=== PATIENT | female | born 1945 | race Caucasian/White ===

== ENCOUNTER 2021-11-24 08:01 | Day surgery (SDC) | payer MEDICARE, OTHER ==
[~2021-11-24 08:01] MED LIST: Lactated Ringers 1,000 ML IV SCH; Sodium Chloride 0.9% 10 ML Syringe FLUSH PRN
[2021-11-24] MEDS ORDERED: Propofol 200 MG/20 ML SDV ONE (09:03)
== END 2021-11-24 11:45 | disposition home or self-care (01) ==
LOC: VM.SDS 08:01
PROVIDERS: ATTEND Family Medicine
DX: Z12.11 Encounter for screening for malignant neoplasm of colon (principal); D12.3 Benign neoplasm of transverse colon; K57.30 Diverticulosis of large intestine without perforation or abscess without bleeding; J44.9 Chronic obstructive pulmonary disease, unspecified; F41.9 Anxiety disorder, unspecified; F32.A Depression, unspecified; G47.00 Insomnia, unspecified; M81.0 Age-related osteoporosis without current pathological fracture; E78.00 Pure hypercholesterolemia, unspecified; F17.210 Nicotine dependence, cigarettes, uncomplicated; Z86.010 Personal history of colon polyps; Z98.890 Other specified postprocedural states; Z79.899 Other long term (current) drug therapy; Z88.0 Allergy status to penicillin
CPT/HCPCS: 00811; 45385; J2704; J7120

== ENCOUNTER 2022-05-31 11:04 | Emergency (ER) | payer MEDICARE, OTHER ==
[2022-05-31 12:41] LABS: ANION GAP 10.9 mmol/L (5-15); CHLORIDE,CL 95 mmol/L (98-107); ESTIMATED GFR 65 mL/min (>=60); SODIUM,NA 133 mmol/L (136-145)
[2022-05-31 12:50] LABS: CORONAVIRUS COVID-19 NAA NEGATIVE (NEGATIVE); RESPIRATORY SYNCYTIAL VIR NAA NEGATIVE (NEGATIVE)
== END 2022-05-31 14:05 | disposition home or self-care (01) ==
LOC: VM.ED 11:04
DX: N30.00 Acute cystitis without hematuria (principal); E78.00 Pure hypercholesterolemia, unspecified; J44.9 Chronic obstructive pulmonary disease, unspecified; Z88.0 Allergy status to penicillin; Z72.0 Tobacco use; Z79.82 Long term (current) use of aspirin; Z79.899 Other long term (current) drug therapy; Z20.822 Contact with and (suspected) exposure to COVID-19
CPT/HCPCS: 0241U; 36415; 80053; 81001; 83605; 85025; 85610; 87040; 87086; 87088; 87186; 99284

== ENCOUNTER 2022-06-01 14:06 | Inpatient (IN) | payer MEDICARE, OTHER ==
[2022-06-01] MEDS ORDERED: Ondansetron 4 MG Tab.DIS PO PRN (14:23)
[2022-06-01] MEDS ORDERED: Ondansetron 4 MG/2 ML SDV IV PRN (14:23)
[2022-06-01] MEDS ORDERED: Morphine 2 MG/ML SYRINGE IVPUSH PRN (14:23)
[2022-06-01 15:20] LABS: CHLORIDE,CL 93 mmol/L (98-107); SODIUM,NA 131 mmol/L (136-145)
[2022-06-01 15:21] LABS: ANION GAP 12.7 mmol/L (5-15); ESTIMATED GFR 57 mL/min (>=60)
[2022-06-01] MEDS: Sodium Chloride 0.9% 1,000 ML IV SCH (15:32)
[2022-06-01] MEDS ORDERED: Iopamidol 612 MG/ML 100 ML Bottle IVPUSH ONE (17:41)
[2022-06-01] MEDS ORDERED: Iopamidol 612 MG/ML 50 ML SDV IVPUSH ONE (17:41)
[2022-06-01] MEDS: Potassium Bicarbonate/Cit Ac 10 MEQ Effervescent Tab PO SCH (18:28)
[2022-06-01] MEDS: Morphine 2 MG/ML SYRINGE IVPUSH PRN (19:19)
[2022-06-01] MEDS: traZODone 50 MG Tab PO SCH (20:17)
[2022-06-01] MEDS: Nitrofurantoin Monohydrate/Macrocrystalline 100 MG Cap PO SCH (20:17)
[2022-06-02] MEDS: Sodium Chloride 0.9% 1,000 ML IV SCH (01:34)
[2022-06-02 07:26] LABS: ANION GAP 10.4 mmol/L (5-15)
[2022-06-02] MEDS: Potassium Bicarbonate/Cit Ac 10 MEQ Effervescent Tab PO SCH (08:03)
[2022-06-02] MEDS: Nitrofurantoin Monohydrate/Macrocrystalline 100 MG Cap PO SCH (08:03)
[2022-06-02] MEDS: Enoxaparin 30 MG/0.3 ML Syringe SUBCUT SCH (08:04)
[2022-06-02] MEDS ORDERED: Albuterol/Ipratropium 3.0-0.5 MG/3 ML Neb Soln NEB PRN (08:13)
[2022-06-02] MEDS: Morphine 2 MG/ML SYRINGE IVPUSH PRN (08:16)
[2022-06-02] MEDS: Sodium Chloride 0.9% 10 ML Syringe FLUSH PRN ×2 (08:22→18:54)
[2022-06-02] MEDS: Albuterol 0.083% 2.5 MG/3 ML Neb Soln NEB PRN ×2 (14:40→20:45)
[2022-06-02] MEDS: cefTRIAXone 1 GM Vial IVPUSH SCH (18:56)
[2022-06-02] MEDS: Doxycycline Monohydrate 100 MG Cap PO SCH (20:40)
[2022-06-02] MEDS: Simvastatin 40 MG Tab PO SCH (20:41)
[2022-06-02] MEDS: traZODone 50 MG Tab PO SCH ×2 (20:41→20:47)
[2022-06-03] MEDS ORDERED: Magnesium Sulfate/Water 2 GM in Premix Bag 1 BAG IV ONE (08:12)
[2022-06-03 08:24] LABS: ANION GAP 8.9 mmol/L (5-15)
[2022-06-03] MEDS: Aspirin 81 MG Tab.Chew PO SCH (08:36)
[2022-06-03] MEDS: Sertraline 100 MG Tab PO SCH (08:36)
[2022-06-03] MEDS: Doxycycline Monohydrate 100 MG Cap PO SCH ×2 (08:37→20:24)
[2022-06-03] MEDS: Docusate Sodium 100 MG Cap PO SCH (08:37)
[2022-06-03] MEDS: Acetaminophen 325 MG Tab PO PRN ×2 (08:37→20:24)
[2022-06-03] MEDS: Enoxaparin 30 MG/0.3 ML Syringe SUBCUT SCH (08:38)
[2022-06-03] MEDS: cefTRIAXone 1 GM Vial IVPUSH SCH (08:39)
[2022-06-03] MEDS: Albuterol 0.083% 2.5 MG/3 ML Neb Soln NEB PRN (08:39)
[2022-06-03] MEDS: Sodium Chloride 0.9% 10 ML Syringe FLUSH PRN (08:44)
[2022-06-03] MEDS: Hypromellose 0.3% Ophth Soln 15 ML Bottle EYEBOTH SCH (08:51)
[2022-06-03] MEDS: Simvastatin 40 MG Tab PO SCH (20:24)
[2022-06-03] MEDS: traZODone 50 MG Tab PO SCH ×2 (20:24→20:27)
[2022-06-04] MEDS: cefTRIAXone 1 GM Vial IVPUSH SCH (08:37)
[2022-06-04] MEDS: Enoxaparin 30 MG/0.3 ML Syringe SUBCUT SCH (08:37)
[2022-06-04] MEDS: Aspirin 81 MG Tab.Chew PO SCH (08:38)
[2022-06-04] MEDS: Doxycycline Monohydrate 100 MG Cap PO SCH ×2 (08:38→20:34)
[2022-06-04] MEDS: Docusate Sodium 100 MG Cap PO SCH (08:38)
[2022-06-04] MEDS: Sertraline 100 MG Tab PO SCH (08:38)
[2022-06-04] MEDS: Hypromellose 0.3% Ophth Soln 15 ML Bottle EYEBOTH SCH (08:39)
[2022-06-04 08:41] LABS: ANION GAP 8.8 mmol/L (5-15)
[2022-06-04] MEDS: traZODone 50 MG Tab PO SCH ×2 (20:34→20:35)
[2022-06-04] MEDS: Simvastatin 40 MG Tab PO SCH (20:34)
[2022-06-05 07:35] LABS: ANION GAP 8.7 mmol/L (5-15)
[2022-06-05] MEDS ORDERED: Tiotropium Bromide 4 GM Inhalation Spray (2.5mcg/1 dose; 10 doses) INH SCH (09:00)
[2022-06-05] MEDS ORDERED: Magnesium Sulfate/Water 2 GM in Premix Bag 1 BAG IV ONE (09:00)
[2022-06-05] MEDS ORDERED: Magnesium Oxide 400 MG Tab PO SCH (09:00)
[2022-06-05] MEDS: Aspirin 81 MG Tab.Chew PO SCH (09:04)
[2022-06-05] MEDS: Docusate Sodium 100 MG Cap PO SCH (09:05)
[2022-06-05] MEDS: Doxycycline Monohydrate 100 MG Cap PO SCH (09:05)
[2022-06-05] MEDS: Sertraline 100 MG Tab PO SCH (09:06)
[2022-06-05] MEDS: Enoxaparin 30 MG/0.3 ML Syringe SUBCUT SCH (09:06)
[2022-06-05] MEDS: Hypromellose 0.3% Ophth Soln 15 ML Bottle EYEBOTH SCH (09:06)
[2022-06-05] MEDS: cefTRIAXone 1 GM Vial IVPUSH SCH (09:11)
== END 2022-06-05 13:33 | disposition home health service (06) | DRG 388 ==
LOC: VM.MS 14:15
PROVIDERS: ADMIT Internal Medicine; ATTEND Internal Medicine
DX: K56.600 Partial intestinal obstruction, unspecified as to cause (principal); J15.29 Pneumonia due to other staphylococcus; J15.4 Pneumonia due to other streptococci; J44.0 Chronic obstructive pulmonary disease with (acute) lower respiratory infection; E44.1 Mild protein-calorie malnutrition; N30.00 Acute cystitis without hematuria; Z68.1 Body mass index [BMI] 19.9 or less, adult; F17.210 Nicotine dependence, cigarettes, uncomplicated; E87.6 Hypokalemia; E83.42 Hypomagnesemia; E78.5 Hyperlipidemia, unspecified; F32.A Depression, unspecified; M81.0 Age-related osteoporosis without current pathological fracture; D64.9 Anemia, unspecified; B96.20 Unspecified Escherichia coli [E. coli] as the cause of diseases classified elsewhere; E78.00 Pure hypercholesterolemia, unspecified; J44.9 Chronic obstructive pulmonary disease, unspecified; K21.9 Gastro-esophageal reflux disease without esophagitis; R09.02 Hypoxemia; G89.29 Other chronic pain; M54.9 Dorsalgia, unspecified; F41.9 Anxiety disorder, unspecified; F10.20 Alcohol dependence, uncomplicated; G47.00 Insomnia, unspecified; Z90.710 Acquired absence of both cervix and uterus; Z98.51 Tubal ligation status; Z98.890 Other specified postprocedural states; Z79.899 Other long term (current) drug therapy; Z86.010 Personal history of colon polyps; Z79.82 Long term (current) use of aspirin
CPT/HCPCS: 36415; 71045; 71046; 74019; 74177; 80048; 80053; 82947; 83605; 83735; 84484; 85025; 87070; 87077; 87205; 94640; 94760; 97110-GP; 97161-GP; 97530-GP; A9270-GY; J0696; J1650; J2270; J2405; J3475; J3490; J7030; J7613-GY; J7620-GY; Q9967

== ENCOUNTER 2022-11-03 16:58 | Emergency (ER) | payer OTHER, MEDICARE | END 2022-11-03 19:08 | disposition home or self-care (01) | LOC: VM.ED 16:58 | DX: S43.401A Unspecified sprain of right shoulder joint, initial encounter (principal); E78.00 Pure hypercholesterolemia, unspecified; J44.9 Chronic obstructive pulmonary disease, unspecified; Z88.0 Allergy status to penicillin; Z79.899 Other long term (current) drug therapy; Z79.82 Long term (current) use of aspirin; W18.30XA Fall on same level, unspecified, initial encounter; Y92.89 Other specified places as the place of occurrence of the external cause | CPT/HCPCS: 73030-RT; 99283 ==

== ENCOUNTER 2023-10-03 13:37 | Emergency (ER) | payer MEDICARE ==
[2023-10-03 14:24] LABS: EOSINOPHILS PERCENT AUTO 0.1 % (0.0-4.0); HEMATOCRIT 41.7 % (33.0-47.0); HEMOGLOBIN 13.6 g/dL (12.0-16.0); IMMATURE GRAN ABSOLUTE AUTO 0.02 x10^3/uL (0.00-0.07); LYMPHOCYTES ABSOLUTE AUTO 0.6 x10^3/uL (1.0-4.8); LYMPHOCYTES PERCENT AUTO 4.3 % (25.0-50.0); MEAN CORPUSCULAR HEMOGLOBIN 29.8 pg (26.0-32.0); MEAN CORPUSCULAR HGB CONC 32.6 g/dL (32.0-36.0); MEAN CORPUSCULAR VOLUME 91.4 fL (78.0-93.0); MONOCYTES ABSOLUTE AUTO 1.2 x10^3/uL (0.0-0.8); MONOCYTES PERCENT AUTO 8.1 % (2.0-11.0); NEUTROPHILS ABSOLUTE AUTO 12.8 x10^3/uL (1.8-7.7); NEUTROPHILS PERCENT AUTO 87.4 % (50.0-80.0); PLATELET COUNT,PLT 273 x10^3/uL (130-400); RED BLOOD CELL COUNT 4.56 x10^6/uL (4.00-5.50); WHITE BLOOD CELL COUNT,WBC 14.6 x10^3/uL (4.0-10.0)
[2023-10-03] MEDS: HYDROmorphone 1 MG/ML Syringe IVPUSH ONE (14:40)
[2023-10-03] MEDS: Sodium Chloride 0.9% 1,000 ML IV ONE ×2 (14:40→17:25)
[2023-10-03] MEDS: Ondansetron 4 MG/2 ML SDV IVPUSH PRN (14:40)
[2023-10-03 14:52] LABS: A/G RATIO 0.82; ALBUMIN 4.1 g/dL (3.4-5.0); ANION GAP 16.2 mmol/L (5-15); BILIRUBIN TOTAL 0.5 mg/dL (0.2-1.0); CALCIUM 9.9 mg/dL (8.5-10.1); CREATININE 1.2 mg/dL (0.55-1.02); EST CRCL DRUG DOSING (CG) 24.02 mL/min; POTASSIUM,K 4.2 mmol/L (3.5-5.1); PROTEIN TOTAL,TP 9.1 g/dL (6.4-8.2)
[2023-10-03] MEDS: Iopamidol 612 MG/ML 100 ML Bottle IVPUSH ONE (15:31)
[2023-10-03] MEDS: Piperacillin/Tazobactam 4.5 GM in Sodium Chloride 0.9% 100 ML IV ONE (17:25)
== END 2023-10-03 19:59 | disposition short-term general hospital (02) ==
LOC: SUPCPDRO 13:37 → VM.ED 13:37
DX: K56.609 Unspecified intestinal obstruction, unspecified as to partial versus complete obstruction (principal); R79.89 Other specified abnormal findings of blood chemistry; E87.20 Acidosis, unspecified; E78.00 Pure hypercholesterolemia, unspecified; J44.9 Chronic obstructive pulmonary disease, unspecified; Z90.710 Acquired absence of both cervix and uterus; Z79.82 Long term (current) use of aspirin; Z79.899 Other long term (current) drug therapy; Z88.0 Allergy status to penicillin
CPT/HCPCS: 36415; 71045; 74177; 80053; 83605; 83690; 84484; 85025; 87040; 93005; 96361; 96365; 96375; 99285; J1170; J2405; J2543; J3490; J7030; Q9967

== ENCOUNTER 2023-10-15 09:28 | Inpatient (IN) | payer MEDICARE ==
[2023-10-15] MEDS ORDERED: oxyCODONE 5 MG Tab PO PRN (18:03)
[2023-10-15] MEDS ORDERED: Albuterol 0.083% 2.5 MG/3 ML Neb Soln NEB PRN (18:14)
[2023-10-15] MEDS ORDERED: Albuterol HFA 18 Gm Inhaler INH PRN (20:35)
[2023-10-15] MEDS: Simvastatin 20 MG Tab PO SCH (21:52)
[2023-10-15] MEDS: Budesonide 0.5 MG/2 ML Neb Susp NEB SCH (21:52)
[2023-10-15] MEDS: Arformoterol 15 MCG/2 ML Neb Soln NEB SCH (21:52)
[2023-10-15] MEDS: Cholecalciferol (Vitamin D3) 25 MCG Tab PO SCH (21:52)
[2023-10-15] MEDS: traZODone 50 MG Tab PO SCH (21:52)
[2023-10-16] MEDS: Sertraline 100 MG Tab PO SCH ×2 (04:42→09:35)
[2023-10-16] MEDS ORDERED: Non-Formulary Medication 1 Each (Potassium Gluconate [Potassium Gluconate] 99 MG Tablet) PO SCH (09:00)
[2023-10-16] MEDS ORDERED: LACTOSE REDUCED FOOD PO SCH ×2 (09:00)
[2023-10-16] MEDS ORDERED: Non-Formulary Medication 1 Each (Carboxymethylcellulose Sodium [Artificial Tears] 15 ML Dr EYEBOTH SCH (09:00)
[2023-10-16] MEDS: Aspirin 81 MG Tab.Chew PO SCH (09:29)
[2023-10-16] MEDS: Ascorbic Acid 500 MG Tab PO SCH (09:29)
[2023-10-16] MEDS: Tiotropium Bromide 4 GM Inhalation Spray (2.5mcg/1 dose; 10 doses) INH SCH (09:30)
[2023-10-16] MEDS: Fish Oil/Omega-3 Fatty Acids 1 Gm Cap PO SCH (09:30)
[2023-10-16] MEDS: Cyanocobalamin (Vitamin B12) 250 MCG Tab PO SCH (09:30)
[2023-10-16] MEDS: Potassium Chloride 10 MEQ Tab.ER PO SCH (09:36)
[2023-10-16] MEDS: Spironolactone 25 MG Tab PO SCH (09:36)
[2023-10-16] MEDS: Nicotine 14 MG/24 Hr Patch TRDERM SCH (09:36)
[2023-10-16] MEDS: Hypromellose 0.3% Ophth Soln 15 ML Bottle EYEBOTH SCH (09:37)
[2023-10-16] MEDS: DENOSUMAB 60 MG/ML SUBCUT SCH (09:54)
[2023-10-16] MEDS: Non-Formulary Medication 1 Each (Potassium Gluconate [Potassium Gluconate] 99 MG) PO SCH (09:55)
[2023-10-16] MEDS: Furosemide 40 MG Tab PO SCH (09:57)
[2023-10-16] MEDS: Calcium Carbonate/Vitamin D3 1250 MG-5 MCG Tab PO SCH (18:08)
[2023-10-16] MEDS: Acetaminophen 325 MG Tab PO PRN (18:12)
[2023-10-18] MEDS: traMADol 50 MG Tab PO PRN (06:46)
[2023-10-18 06:48] LABS: BASOPHILS PERCENT AUTO 0.2 % (0.2-1.2); EOSINOPHILS ABSOLUTE AUTO 0.1 x10^3/uL (0.0-0.5); EOSINOPHILS PERCENT AUTO 0.6 % (0.0-4.0); HEMATOCRIT 26.6 % (33.0-47.0); HEMOGLOBIN 8.7 g/dL (12.0-16.0); IMMATURE GRAN ABSOLUTE AUTO 0.03 x10^3/uL (0.00-0.07); LYMPHOCYTES ABSOLUTE AUTO 1.1 x10^3/uL (1.0-4.8); LYMPHOCYTES PERCENT AUTO 7.9 % (25.0-50.0); MEAN CORPUSCULAR HEMOGLOBIN 30.1 pg (26.0-32.0); MEAN CORPUSCULAR HGB CONC 32.7 g/dL (32.0-36.0); MONOCYTES ABSOLUTE AUTO 1.2 x10^3/uL (0.0-0.8); NEUTROPHILS ABSOLUTE AUTO 11.9 x10^3/uL (1.8-7.7); NEUTROPHILS PERCENT AUTO 83.1 % (50.0-80.0); RED BLOOD CELL COUNT 2.89 x10^6/uL (4.00-5.50); WHITE BLOOD CELL COUNT,WBC 14.4 x10^3/uL (4.0-10.0)
[2023-10-18 07:03] LABS: PLATELET COUNT,PLT 725 x10^3/uL (130-400)
[2023-10-18 07:18] LABS: A/G RATIO 0.43; ALBUMIN 1.7 g/dL (3.4-5.0); BILIRUBIN TOTAL 0.3 mg/dL (0.2-1.0); CALCIUM 8.6 mg/dL (8.5-10.1); CREATININE 0.5 mg/dL (0.55-1.02); EST CRCL DRUG DOSING (CG) 64.52 mL/min; PROTEIN TOTAL,TP 5.7 g/dL (6.4-8.2)
[2023-10-18] MEDS: Amoxicillin/Clavulanate K 875-125 MG Tab PO SCH (09:29)
[2023-10-19 07:27] LABS: BASOPHILS PERCENT AUTO 0.2 % (0.2-1.2); EOSINOPHILS ABSOLUTE AUTO 0.1 x10^3/uL (0.0-0.5); EOSINOPHILS PERCENT AUTO 0.8 % (0.0-4.0); HEMOGLOBIN 8.8 g/dL (12.0-16.0); IMMATURE GRAN ABSOLUTE AUTO 0.03 x10^3/uL (0.00-0.07); LYMPHOCYTES ABSOLUTE AUTO 1.3 x10^3/uL (1.0-4.8); LYMPHOCYTES PERCENT AUTO 9.6 % (25.0-50.0); MEAN CORPUSCULAR HEMOGLOBIN 28.9 pg (26.0-32.0); MEAN CORPUSCULAR HGB CONC 31.4 g/dL (32.0-36.0); MEAN CORPUSCULAR VOLUME 92.1 fL (78.0-93.0); MONOCYTES PERCENT AUTO 7.2 % (2.0-11.0); NEUTROPHILS ABSOLUTE AUTO 11.4 x10^3/uL (1.8-7.7); RED BLOOD CELL COUNT 3.04 x10^6/uL (4.00-5.50); WHITE BLOOD CELL COUNT,WBC 13.9 x10^3/uL (4.0-10.0)
[2023-10-19 07:35] LABS: PLATELET COUNT,PLT 809 x10^3/uL (130-400)
[2023-10-19 07:42] LABS: ALBUMIN 1.9 g/dL (3.4-5.0); CREATININE 0.6 mg/dL (0.55-1.02); EST CRCL DRUG DOSING (CG) 53.82 mL/min; MAGNESIUM 1.3 mg/dL (1.8-2.4); PHOSPHORUS 5.1 mg/dL (2.6-4.7); POTASSIUM,K 3.9 mmol/L (3.5-5.1)
[2023-10-19] MEDS: Famotidine 20 MG Tab PO SCH (08:43)
[2023-10-19] MEDS: Magnesium Oxide 400 MG Tab PO SCH (11:58)
[2023-10-20] MEDS: Fluconazole 100 MG Tab PO SCH (08:57)
[2023-10-22 06:58] LABS: BASOPHILS ABSOLUTE AUTO 0.1 x10^3/uL (0.0-0.2); BASOPHILS PERCENT AUTO 0.5 % (0.2-1.2); EOSINOPHILS ABSOLUTE AUTO 0.2 x10^3/uL (0.0-0.5); EOSINOPHILS PERCENT AUTO 2.2 % (0.0-4.0); HEMATOCRIT 25.9 % (33.0-47.0); HEMOGLOBIN 8.3 g/dL (12.0-16.0); IMMATURE GRAN ABSOLUTE AUTO 0.01 x10^3/uL (0.00-0.07); LYMPHOCYTES ABSOLUTE AUTO 1.4 x10^3/uL (1.0-4.8); LYMPHOCYTES PERCENT AUTO 14.6 % (25.0-50.0); MEAN CORPUSCULAR HEMOGLOBIN 29.6 pg (26.0-32.0); MEAN CORPUSCULAR VOLUME 92.5 fL (78.0-93.0); MONOCYTES PERCENT AUTO 10.5 % (2.0-11.0); NEUTROPHILS ABSOLUTE AUTO 6.8 x10^3/uL (1.8-7.7); NEUTROPHILS PERCENT AUTO 72.1 % (50.0-80.0); WHITE BLOOD CELL COUNT,WBC 9.4 x10^3/uL (4.0-10.0)
[2023-10-22 07:08] LABS: CREATININE 0.5 mg/dL (0.55-1.02); EST CRCL DRUG DOSING (CG) 55.26 mL/min; POTASSIUM,K 4.1 mmol/L (3.5-5.1)
[2023-10-22 07:15] LABS: CALCIUM 9.8 mg/dL (8.5-10.1)
[2023-10-22 07:16] LABS: ANION GAP 8.1 mmol/L (5-15)
[2023-10-22 07:20] LABS: PLATELET COUNT,PLT 863 x10^3/uL (130-400)
[2023-10-22] MEDS ORDERED: Magnesium Oxide 400 MG Tab PO SCH (17:15)
[2023-10-24] MEDS ORDERED: Magnesium Oxide 400 MG Tab PO SCH (09:00)
[2023-10-25] MEDS: Loperamide 2 MG Cap PO PRN (08:34)
[2023-10-25] MEDS: Simvastatin 10 MG Tab PO SCH (20:21)
[2023-10-25] MEDS: Lactobacillus Rhamnosus GG (Probiotic) Cap PO SCH (20:21)
[2023-10-26 11:29] LABS: ANION GAP 8.1 mmol/L (5-15); CREATININE 0.8 mg/dL (0.55-1.02); EST CRCL DRUG DOSING (CG) 31.45 mL/min; POTASSIUM,K 4.1 mmol/L (3.5-5.1)
[2023-10-26 11:31] LABS: BASOPHILS ABSOLUTE AUTO 0.1 x10^3/uL (0.0-0.2); BASOPHILS PERCENT AUTO 0.6 % (0.2-1.2); EOSINOPHILS ABSOLUTE AUTO 0.3 x10^3/uL (0.0-0.5); EOSINOPHILS PERCENT AUTO 3.3 % (0.0-4.0); HEMATOCRIT 29.3 % (33.0-47.0); HEMOGLOBIN 9.2 g/dL (12.0-16.0); IMMATURE GRAN ABSOLUTE AUTO 0.03 x10^3/uL (0.00-0.07); LYMPHOCYTES ABSOLUTE AUTO 1.9 x10^3/uL (1.0-4.8); LYMPHOCYTES PERCENT AUTO 22.8 % (25.0-50.0); MEAN CORPUSCULAR HEMOGLOBIN 29.3 pg (26.0-32.0); MEAN CORPUSCULAR HGB CONC 31.4 g/dL (32.0-36.0); MEAN CORPUSCULAR VOLUME 93.3 fL (78.0-93.0); MONOCYTES PERCENT AUTO 12.2 % (2.0-11.0); NEUTROPHILS ABSOLUTE AUTO 5.1 x10^3/uL (1.8-7.7); NEUTROPHILS PERCENT AUTO 60.7 % (50.0-80.0); PLATELET COUNT,PLT 568 x10^3/uL (130-400); RED BLOOD CELL COUNT 3.14 x10^6/uL (4.00-5.50); WHITE BLOOD CELL COUNT,WBC 8.4 x10^3/uL (4.0-10.0)
[2023-10-26] MEDS: Mirtazapine 15 MG Tab PO SCH (20:23)
[2023-10-30 06:46] LABS: BASOPHILS PERCENT AUTO 0.2 % (0.2-1.2); EOSINOPHILS ABSOLUTE AUTO 0.2 x10^3/uL (0.0-0.5); EOSINOPHILS PERCENT AUTO 1.9 % (0.0-4.0); HEMATOCRIT 31.9 % (33.0-47.0); IMMATURE GRAN ABSOLUTE AUTO 0.04 x10^3/uL (0.00-0.07); LYMPHOCYTES ABSOLUTE AUTO 2.1 x10^3/uL (1.0-4.8); LYMPHOCYTES PERCENT AUTO 18.1 % (25.0-50.0); MEAN CORPUSCULAR HEMOGLOBIN 29.3 pg (26.0-32.0); MEAN CORPUSCULAR HGB CONC 31.3 g/dL (32.0-36.0); MEAN CORPUSCULAR VOLUME 93.5 fL (78.0-93.0); MONOCYTES ABSOLUTE AUTO 1.2 x10^3/uL (0.0-0.8); MONOCYTES PERCENT AUTO 10.2 % (2.0-11.0); NEUTROPHILS ABSOLUTE AUTO 7.9 x10^3/uL (1.8-7.7); NEUTROPHILS PERCENT AUTO 69.3 % (50.0-80.0); PLATELET COUNT,PLT 377 x10^3/uL (130-400); RED BLOOD CELL COUNT 3.41 x10^6/uL (4.00-5.50); WHITE BLOOD CELL COUNT,WBC 11.4 x10^3/uL (4.0-10.0)
[2023-10-30 06:57] LABS: CALCIUM 9.4 mg/dL (8.5-10.1); CREATININE 0.7 mg/dL (0.55-1.02); EST CRCL DRUG DOSING (CG) 35.11 mL/min; POTASSIUM,K 3.9 mmol/L (3.5-5.1)
[2023-10-30 07:02] LABS: ANION GAP 9.9 mmol/L (5-15)
[2023-10-30] MEDS: Mirtazapine 15 MG Tab PO SCH (20:40)
[2023-10-30] MEDS: Multivit-Minerals/Ferrous Gluc 9 MG/15 ML 15 ml Cup PO SCH (20:41)
[2023-10-31 06:47] LABS: BASOPHILS PERCENT AUTO 0.4 % (0.2-1.2); EOSINOPHILS ABSOLUTE AUTO 0.4 x10^3/uL (0.0-0.5); EOSINOPHILS PERCENT AUTO 5.3 % (0.0-4.0); HEMATOCRIT 29.3 % (33.0-47.0); HEMOGLOBIN 9.3 g/dL (12.0-16.0); IMMATURE GRAN ABSOLUTE AUTO 0.03 x10^3/uL (0.00-0.07); LYMPHOCYTES ABSOLUTE AUTO 1.5 x10^3/uL (1.0-4.8); MEAN CORPUSCULAR HEMOGLOBIN 29.2 pg (26.0-32.0); MEAN CORPUSCULAR HGB CONC 31.7 g/dL (32.0-36.0); MEAN CORPUSCULAR VOLUME 92.1 fL (78.0-93.0); MONOCYTES ABSOLUTE AUTO 0.9 x10^3/uL (0.0-0.8); MONOCYTES PERCENT AUTO 11.4 % (2.0-11.0); NEUTROPHILS ABSOLUTE AUTO 4.8 x10^3/uL (1.8-7.7); NEUTROPHILS PERCENT AUTO 62.5 % (50.0-80.0); PLATELET COUNT,PLT 349 x10^3/uL (130-400); RED BLOOD CELL COUNT 3.18 x10^6/uL (4.00-5.50); WHITE BLOOD CELL COUNT,WBC 7.7 x10^3/uL (4.0-10.0)
[2023-10-31] MEDS: Iopamidol 612 MG/ML 100 ML Bottle IVPUSH ONE (12:49)
== END 2023-10-31 17:10 | disposition short-term general hospital (02) | DRG 947 ==
LOC: VM.MS 16:14
PROVIDERS: ADMIT Internal Medicine; ATTEND Internal Medicine
DX: R53.1 Weakness (principal); E43 Unspecified severe protein-calorie malnutrition; N82.8 Other female genital tract fistulae; J44.9 Chronic obstructive pulmonary disease, unspecified; F41.9 Anxiety disorder, unspecified; F32.A Depression, unspecified; M81.0 Age-related osteoporosis without current pathological fracture; R19.7 Diarrhea, unspecified; E87.6 Hypokalemia; E83.42 Hypomagnesemia; E78.5 Hyperlipidemia, unspecified; G47.00 Insomnia, unspecified; K21.9 Gastro-esophageal reflux disease without esophagitis; D64.89 Other specified anemias; N76.0 Acute vaginitis; T81.49XD Infection following a procedure, other surgical site, subsequent encounter; Z98.890 Other specified postprocedural states; Z87.81 Personal history of (healed) traumatic fracture; Z86.010 Personal history of colon polyps; Z87.891 Personal history of nicotine dependence; Z99.81 Dependence on supplemental oxygen; Z79.899 Other long term (current) drug therapy; Z79.82 Long term (current) use of aspirin; Z79.51 Long term (current) use of inhaled steroids; Z88.0 Allergy status to penicillin; Z87.01 Personal history of pneumonia (recurrent)
CPT/HCPCS: 36415; 74177; 80048; 80053; 80069; 83735; 85025; 94640; 94760; 95851-GO; 97110-GP; 97116-GP; 97161-GP; 97164-GP; 97165-GO; 97535-GO; A9270-GY; J3490; Q9967

== ENCOUNTER 2023-11-07 10:30 | Inpatient (IN) | payer MEDICARE ==
[2023-11-07] MEDS ORDERED: Ondansetron 4 MG Tab.DIS PO PRN (17:46)
[2023-11-07] MEDS ORDERED: Albuterol HFA 18 Gm Inhaler INH PRN (17:50)
[2023-11-07] MEDS ORDERED: Loperamide 2 MG Cap PO PRN (17:50)
[2023-11-07] MEDS: Acetaminophen 325 MG Tab PO PRN (18:39)
[2023-11-07] MEDS: Simvastatin 10 MG Tab PO SCH (20:09)
[2023-11-07] MEDS: Cholecalciferol (Vitamin D3) 25 MCG Tab PO SCH (20:09)
[2023-11-07] MEDS: Mirtazapine 15 MG Tab PO SCH (20:09)
[2023-11-07] MEDS: traZODone 50 MG Tab PO SCH (20:09)
[2023-11-07] MEDS: Hypromellose 0.3% Ophth Soln 15 ML Bottle EYEBOTH SCH (20:09)
[2023-11-07] MEDS: Budesonide 0.5 MG/2 ML Neb Susp NEB SCH (20:10)
[2023-11-07] MEDS: Arformoterol 15 MCG/2 ML Neb Soln NEB SCH (20:10)
[2023-11-07] MEDS ORDERED: DEXTRAN EYEBOTH SCH (21:00)
[2023-11-07] MEDS ORDERED: HYPROMELLOSE EYEBOTH SCH (21:00)
[2023-11-07] MEDS ORDERED: EAC EYEBOTH SCH (21:00)
[2023-11-07] MEDS ORDERED: [UNRECOGNIZED DRUG - OTHER] EYEBOTH SCH (21:00)
[2023-11-07] MEDS: cefTRIAXone 2 GM Vial IVPUSH SCH (23:15)
[2023-11-07] MEDS: metroNIDAZOLE 500 MG Tab PO SCH (23:15)
[2023-11-07] MEDS: Sodium Chloride 0.9% 10 ML Syringe FLUSH PRN (23:22)
[2023-11-07] MEDS: Heparin Sodium 100 Units/ML 3 ML Syringe IVPUSH PRN (23:23)
[2023-11-08] MEDS ORDERED: LACTOSE REDUCED FOOD PO SCH (09:00)
[2023-11-08] MEDS: Sertraline 100 MG Tab PO SCH (09:26)
[2023-11-08] MEDS: Ascorbic Acid 500 MG Tab PO SCH (09:26)
[2023-11-08] MEDS: Spironolactone 25 MG Tab PO SCH (09:26)
[2023-11-08] MEDS: Calcium Carbonate/Vitamin D3 1250 MG-5 MCG Tab PO SCH (09:27)
[2023-11-08] MEDS: Cyanocobalamin (Vitamin B12) 250 MCG Tab PO SCH (09:27)
[2023-11-08] MEDS: Aspirin 81 MG Tab.Chew PO SCH (09:27)
[2023-11-08] MEDS: Nicotine 14 MG/24 Hr Patch TRDERM SCH (09:27)
[2023-11-08] MEDS: Tiotropium Bromide 4 GM Inhalation Spray (2.5mcg/1 dose; 10 doses) INH SCH (09:30)
[2023-11-09] MEDS: cefTRIAXone 2 GM Vial IVPUSH SCH (20:10)
[2023-11-09] MEDS: Heparin Sodium 100 Units/ML 3 ML Syringe IVPUSH SCH (20:11)
[2023-11-11 16:36] LABS: BASOPHILS PERCENT AUTO 0.3 % (0.2-1.2); EOSINOPHILS ABSOLUTE AUTO 0.3 x10^3/uL (0.0-0.5); EOSINOPHILS PERCENT AUTO 3.3 % (0.0-4.0); HEMATOCRIT 27.9 % (33.0-47.0); HEMOGLOBIN 8.7 g/dL (12.0-16.0); IMMATURE GRAN ABSOLUTE AUTO 0.05 x10^3/uL (0.00-0.07); LYMPHOCYTES ABSOLUTE AUTO 2.2 x10^3/uL (1.0-4.8); LYMPHOCYTES PERCENT AUTO 22.9 % (25.0-50.0); MEAN CORPUSCULAR HEMOGLOBIN 29.1 pg (26.0-32.0); MEAN CORPUSCULAR HGB CONC 31.2 g/dL (32.0-36.0); MEAN CORPUSCULAR VOLUME 93.3 fL (78.0-93.0); MONOCYTES ABSOLUTE AUTO 0.9 x10^3/uL (0.0-0.8); NEUTROPHILS ABSOLUTE AUTO 5.9 x10^3/uL (1.8-7.7); PLATELET COUNT,PLT 356 x10^3/uL (130-400); RED BLOOD CELL COUNT 2.99 x10^6/uL (4.00-5.50); WHITE BLOOD CELL COUNT,WBC 9.4 x10^3/uL (4.0-10.0)
[2023-11-11 16:44] LABS: ANION GAP 8.8 mmol/L (5-15); CALCIUM 9.3 mg/dL (8.5-10.1); CREATININE 0.6 mg/dL (0.55-1.02); EST CRCL DRUG DOSING (CG) 49.27 mL/min; MAGNESIUM 1.4 mg/dL (1.8-2.4); POTASSIUM,K 4.8 mmol/L (3.5-5.1)
[2023-11-11] MEDS: Iopamidol 612 MG/ML 100 ML Bottle IVPUSH ONE (18:11)
[2023-11-12 07:48] LABS: BASOPHILS PERCENT AUTO 0.3 % (0.2-1.2); EOSINOPHILS ABSOLUTE AUTO 0.3 x10^3/uL (0.0-0.5); EOSINOPHILS PERCENT AUTO 3.7 % (0.0-4.0); HEMATOCRIT 30.9 % (33.0-47.0); HEMOGLOBIN 9.6 g/dL (12.0-16.0); IMMATURE GRAN ABSOLUTE AUTO 0.03 x10^3/uL (0.00-0.07); LYMPHOCYTES ABSOLUTE AUTO 1.4 x10^3/uL (1.0-4.8); LYMPHOCYTES PERCENT AUTO 16.2 % (25.0-50.0); MEAN CORPUSCULAR HEMOGLOBIN 29.6 pg (26.0-32.0); MEAN CORPUSCULAR HGB CONC 31.1 g/dL (32.0-36.0); MEAN CORPUSCULAR VOLUME 95.4 fL (78.0-93.0); MONOCYTES ABSOLUTE AUTO 0.8 x10^3/uL (0.0-0.8); MONOCYTES PERCENT AUTO 9.3 % (2.0-11.0); NEUTROPHILS ABSOLUTE AUTO 6.3 x10^3/uL (1.8-7.7); NEUTROPHILS PERCENT AUTO 70.2 % (50.0-80.0); PLATELET COUNT,PLT 381 x10^3/uL (130-400); RED BLOOD CELL COUNT 3.24 x10^6/uL (4.00-5.50); WHITE BLOOD CELL COUNT,WBC 8.9 x10^3/uL (4.0-10.0)
[2023-11-12 08:10] LABS: CREATININE 0.6 mg/dL (0.55-1.02); EST CRCL DRUG DOSING (CG) 49.46 mL/min
[2023-11-12] MEDS: Magnesium Chloride 64 MG Tab.ER PO SCH (20:02)
[2023-11-13] MEDS: atorvaSTATin 10 MG Tab PO SCH (20:01)
[2023-11-16] MEDS: cefTRIAXone 2 GM Vial IVPUSH SCH (14:09)
[2023-11-16] MEDS: Heparin Sodium 100 Units/ML 3 ML Syringe IVPUSH SCH (14:10)
[2023-11-16] MEDS ORDERED: Magnesium Chloride 64 MG Tab.ER PO SCH (21:00)
== END 2023-11-16 14:37 | disposition home or self-care (01) | DRG 949 ==
LOC: VM.MS 15:22
PROVIDERS: ADMIT Physician Assistant; ATTEND Internal Medicine
DX: Z48.815 Encounter for surgical aftercare following surgery on the digestive system (principal); E43 Unspecified severe protein-calorie malnutrition; T81.31XA Disruption of external operation (surgical) wound, not elsewhere classified, initial encounter; D62 Acute posthemorrhagic anemia; I50.32 Chronic diastolic (congestive) heart failure; Z68.1 Body mass index [BMI] 19.9 or less, adult; N73.9 Female pelvic inflammatory disease, unspecified; J44.9 Chronic obstructive pulmonary disease, unspecified; N18.9 Chronic kidney disease, unspecified; F32.A Depression, unspecified; M81.0 Age-related osteoporosis without current pathological fracture; E78.00 Pure hypercholesterolemia, unspecified; K21.9 Gastro-esophageal reflux disease without esophagitis; M54.9 Dorsalgia, unspecified; G89.29 Other chronic pain; F41.9 Anxiety disorder, unspecified; F17.210 Nicotine dependence, cigarettes, uncomplicated; Z66 Do not resuscitate; K59.00 Constipation, unspecified; E83.42 Hypomagnesemia; G47.00 Insomnia, unspecified; Z88.0 Allergy status to penicillin; Z98.890 Other specified postprocedural states; Z79.899 Other long term (current) drug therapy; Z79.82 Long term (current) use of aspirin; Z79.51 Long term (current) use of inhaled steroids; Z86.010 Personal history of colon polyps; Z90.710 Acquired absence of both cervix and uterus; Z98.51 Tubal ligation status
CPT/HCPCS: 36415; 74177; 80048; 82565; 83735; 84460; 85025; 87070; 94640; 97116-GP; 97161-GP; 97165-GO; 97535-GO; A9270-GY; J0696; J1642; J3490; Q9967